=== PATIENT | male | born 1955 | race Caucasian/White ===

== ENCOUNTER 2017-05-27 12:57 | Emergency (ER) | payer OTHER ==
[~2017-05-27] VITALS: Ht 180.3 cm; Wt 105.5 kg
[~2017-05-27 12:57] MED LIST: ACIPHEX20 MG PO; ASPIRIN EC325 MG PO; BACTRIM,SEPT1 TABLET PO; KEFLEX500 MG PO; MOTRIN800 MG PO; ONE DAILY1 EAC3 PO; ROBITUSSIN DM118 ML PO; ROBITUSSIN100 MG/5 M PO; TRAMADOL HCL50 MG PO; ULTRAM50 MG PO; VENTOLIN HFA18 GM IH; VICODIN,LORT1 TABLET PO
[2017-05-27 16:51] VITALS: BP 129/70
== END 2017-05-27 16:51 | disposition home or self-care (01) ==
LOC: EME 12:57
DX: M79.604 Pain in right leg (principal); K21.9 Gastro-esophageal reflux disease without esophagitis; Z87.442 Personal history of urinary calculi; Z87.891 Personal history of nicotine dependence
CPT/HCPCS: 73564; 93971; 99281; 99283

== ENCOUNTER 2018-01-27 19:14 | Emergency (ER) | payer OTHER ==
[~2018-01-27] VITALS: Ht 180.3 cm; Wt 108.9 kg
[2018-01-27] MEDS ORDERED: SKELAXIN800 MG PO (21:36)
[2018-01-27] MEDS ORDERED: LIDODERM 5% P1 PATCH TD (21:36)
[2018-01-27] MEDS ORDERED: MOTRIN800 MG PO (21:36)
[2018-01-27 22:30] VITALS: BP 159/93
== END 2018-01-27 22:32 | disposition home or self-care (01) ==
LOC: EME 19:14
DX: M54.2 Cervicalgia (principal); Z87.442 Personal history of urinary calculi; K21.9 Gastro-esophageal reflux disease without esophagitis; Z88.5 Allergy status to narcotic agent; Z88.8 Allergy status to other drugs, medicaments and biological substances; Z87.891 Personal history of nicotine dependence
CPT/HCPCS: 99281; 99284